=== PATIENT | female | born 1985 | race Two or more races ===

== ENCOUNTER 2019-06-30 16:12 | Emergency (ER) | payer SELFPAY ==
[~2019-06-30] VITALS: Ht 167.6 cm; Wt 120.7 kg
--- NOTE | 2019-06-30 16:30 | NUR ---
AOX3, ABLE TO SPEAK CLEAR AND COMPLETE SENTENCES C/O ABD PAIN DENIES RECENT TRAVELS DENIES RECENT TRAUMA NOR SURGERIES TO THE SITE PT DENIES SOB, NVD, FEVERS, NOR CHILLS
--- NOTE | 2019-06-30 16:50 | NUR ---
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
[2019-06-30 16:52] LABS: *BILIRUBIN,URIN NEGATIVE (NEGATIVE); *BLOOD, URINE NEGATIVE (NEGATIVE); *CLARITY,URINE CLEAR (CLEAR); *COLOR,URINE YELLOW (YELLOW); *KETONES,URINE NEGATIVE (NEGATIVE); *UROBILINOGEN,URINE 0.2 E.U./dl (NORMAL); LEUKOCYTE ESTERASE ,URINE NEGATIVE (NEGATIVE); NITRITE, URINE NEGATIVE (NEGATIVE); UGLUCOSE NEGATIVE (NEGATIVE)
[2019-06-30 16:53] LABS: BASOPHILS % (AUTO) 0.4 % (0.0-2.0); EOSINOPHILS # (AUTO) 0.1 K/uL (0.0-0.7); EOSINOPHILS % (AUTO) 1.2 % (0.0-7.0); HEMOGLOBIN 12.8 g/dL (10.9-14.3); LYMPHOCYTES # (AUTO) 3.2 K/uL (20.0-40.0); LYMPHOCYTES % (AUTO) 27.4 % (20.5-51.5); MEAN CORPUSCULAR HEMOGLOBIN 28.1 uug (24.7-32.8); MEAN CORPUSCULAR HGB CONC 34 g/dL (32.3-35.6); MEAN CORPUSCULAR VOLUME 83.3 fL (75.5-95.3); MONOCYTES # (AUTO) 0.9 K/uL (2.0-10.0); NEUTROPHILS # (AUTO) 7.3 K/uL (1.8-8.9); PLATELET COUNT (AUTO) 328 K/uL (179-408); RED BLOOD CELL COUNT(AUTO) 4.56 MIL/uL (3.63-4.92); WHITE BLOOD COUNT (AUTO) 11.6 K/uL (3.8-11.8)
[2019-06-30 16:54] LABS: *URINE HCG, QUAL NEGATIVE (NEGATIVE)
[2019-06-30] MEDS ORDERED: KETOROLAC TROMETHAMINE 30 MG INJ IM ONE (17:00)
[2019-06-30] MEDS ORDERED: KETOROLAC TROMETHAMINE 30 MG INJ ONE (17:01)
[2019-06-30 17:06] LABS: BILIRUBIN,DIRECT 0.1 mg/dL (0.0-0.2); BILIRUBIN,TOTAL 0.4 mg/dL (0.2-1.0); CREATININE 0.8 mg/dL (0.6-1.3); POTASSIUM 4.2 mmol/L (3.5-5.1); TOTAL PROTEIN, SERUM 8.1 g/dL (6.4-8.2)
--- NOTE | 2019-06-30 18:18 | NUR ---
PT ABLE TO TOLERATE PELVIC EXAM PROVIDED PRIVACY AT BEDSIDE CHAPERONED BY RN
[2019-06-30] MEDS ORDERED: HYDROMORPHONE 1 MG/1 ML DISP.SYRIN ONE (18:28)
[2019-06-30] MEDS ORDERED: HYDROMORPHONE 1 MG/1 ML DISP.SYRIN IM ONE (18:30)
--- NOTE | 2019-06-30 18:32 | NUR ---
PT TRANSPORTED TO CT VIA [facility] BY [facility]ENT [facility]
--- NOTE | 2019-06-30 18:49 | NUR ---
PT BACK FROM CT VIA [facility] BY RABBLER RA FIGUEROA DENIES PAIN
--- NOTE | 2019-06-30 19:04 | NUR ---
HAND OFF AND SBAR GIVEN TO INCOMING SHAFT HEADMAN RN SERA)
--- NOTE | 2019-06-30 19:19 | NUR ---
Patient discharged to home in stable conditon. Written and verbal after care instructions given. Patient verbalizes understanding of instructions. Patient ambulating with steady gait.
[2019-06-30 19:20] VITALS: BP 138/83
== END 2019-06-30 19:19 | disposition home or self-care (01) ==
LOC: ER 16:15
DX: R10.2 Pelvic and perineal pain (principal)
CPT/HCPCS: 36415; 74176; 76856; 80048; 80076; 81001; 83690; 84703; 85025; 96372 ×2; 99285; J1170; J1885; A4663